=== PATIENT | male | born 1945 | race Caucasian/White ===

== ENCOUNTER 2019-07-03 12:37 | Emergency (ER) | payer MEDICARE, BC ==
[~2019-07-03] VITALS: Ht 177.8 cm; Wt 170.5 kg
[2019-07-03] MEDS ORDERED: PLEASE ENTER ALLERGIES MC SCH (13:30)
[2019-07-03] MEDS ORDERED: SODIUM CHLORIDE FLUSH 10ML SYR IVF ONE (13:30)
[2019-07-03 14:21] LABS: BASOPHILS % (AUTO) 0 % (0-1); EOSINOPHILS % (AUTO) 0 % (1-7); LYMPHOCYTES # (AUTO) 0.41 x10^3/uL (1-3.4); LYMPHOCYTES % (AUTO) 5 % (22-44); MD NO; MEAN CORPUSCULAR HEMOGLOBIN 29.2 pg (27.5-34.5); MEAN CORPUSCULAR HGB CONC 32.5 g/dL (33.2-36.2); MEAN PLATELET VOLUME 8.3 fL (7.4-10.4); MONOCYTES # (AUTO) 0.14 x10^3/uL (0.2-0.8); MONOCYTES % (AUTO) 2 % (2-9); NEUTROPHILS # (AUTO) 8.15 x10^3/uL (1.8-6.8); NEUTROPHILS % (AUTO) 94 % (42-75); PLATELET COUNT 198 x10^3/uL (130-400); RED BLOOD COUNT 5.71 x10^6/uL (4.38-5.82); RED CELL DISTRIBUTION WIDTH 16.7 % (9.4-14.8)
[2019-07-03 14:27] LABS: ALBUMIN 3.6 g/dL (3.4-5.0); ANION GAP 6 mmol/L (5-15); CALCIUM 8.9 mg/dL (8.5-10.1); CHLORIDE 107 mmol/L (98-107)
[2019-07-03 14:32] LABS: ALANINE AMINOTRANSFERASE 36 U/L (12-78); ALKALINE PHOSPHATASE 90 U/L (45-117); BILIRUBIN,TOTAL 0.8 mg/dL (0.2-1.0); CREATININE 0.99 mg/dL (0.7-1.3); TROPONIN I < 0.015 ng/mL (0.000-0.045)
--- NOTE | 2019-07-03 15:05 | NUR ---
PT SITTING IN BED, FAMILY AT BEDSIDE. DENIES ANY NEEDS OR CONCERNS. CALL LIGHT IN REACH.
--- NOTE | 2019-07-03 15:13 | NUR ---
PT REPORT FROM ESTEFANI HERNANDEZ. PT CARE TO BE ASSUMED.
--- NOTE | 2019-07-03 15:50 | NUR ---
PT UNABLE TO RECALL NAMES AND DOSEAGES OF PRESCRIPTIONS. HAS PREDNISONE RX BOTTLE WITH HIM.
[2019-07-03] MEDS ORDERED: PRED10TA PO (16:01)
[2019-07-03] MEDS ORDERED: NEBULIZER (16:01)
[2019-07-03] MEDS ORDERED: INHALER (16:01)
[2019-07-03 16:02] VITALS: BP 137/77
== END 2019-07-03 16:04 | disposition home or self-care (01) ==
LOC: ED 16:00
DX: R06.00 Dyspnea, unspecified (principal); I44.4 Left anterior fascicular block; J45.909 Unspecified asthma, uncomplicated
CPT/HCPCS: 36415; 71045; 80053; 83880; 84484; 85025; 93005; 99285